=== PATIENT | female | born 1940 | race Two or more races ===

== ENCOUNTER 2019-07-17 08:58 | Emergency (ER) | payer MEDICARE, MEDICAID ==
[~2019-07-17] VITALS: Ht 147.3 cm; Wt 57.2 kg
[~2019-07-17 08:58] MED LIST: AMLO2.5T7 PO; ATOR20TA PO; ISOS30TA4 PO; LEVO75TA6 PO; MAGN400T28 PO; MELO1TAB56 PO; METO25TA62 PO; TEMA15CA91 PO
[2019-07-17 09:19] VITALS: BP 132/82
== END 2019-07-17 10:16 | disposition home or self-care (01) ==
LOC: EDBD 08:58 → EDUNIT# 08:58 → ER 08:58
DX: F41.9 Anxiety disorder, unspecified (principal); F32.9 Major depressive disorder, single episode, unspecified; I10 Essential (primary) hypertension; E78.5 Hyperlipidemia, unspecified; Z95.0 Presence of cardiac pacemaker; Z86.73 Personal history of transient ischemic attack (TIA), and cerebral infarction without residual deficits
CPT/HCPCS: 93005

== ENCOUNTER 2020-10-28 08:57 | Inpatient (IN) | payer MEDICARE, MEDICAID ==
[~2020-10-28] VITALS: Ht 154.9 cm; Wt 54.4 kg
[~2020-10-28 08:57] MED LIST changes: +AMLO-483 PO; -AMLO2.5T7 PO; -METO25TA62 PO; +METO25TA93 PO
[2020-10-28] MEDS ORDERED: HYDROcodone-ACET 5/325MG TAB PO ONE (10:45)
[2020-10-28 11:30] LABS: Basophils # (auto) 0 10 ^3/uL (0-0.2); Basophils % (auto) 0.2 % (0.0-2.0); Eosinophils # (auto) 0.1 10 ^3/uL (0-0.8); Eosinophils % (auto) 0.9 % (0.0-7.0); Hematocrit 40.2 % (36.0-46.0); Hemoglobin 13.9 g/dL (12.2-16.2); Lymphocytes # (auto) 1.1 10 ^3/uL (0.4-5.4); Lymphocytes % (auto) 16.6 % (10.0-50.0); Mean Corpuscular Hemoglobin 32.3 pg (28.0-32.0); Mean Corpuscular Hgb Conc. 34.5 g/dL (32.0-36.0); Mean Corpuscular Volume 93.5 fL (80.0-100.0); Monocytes # (auto) 0.3 10 ^3/uL (0-1.3); Monocytes % (auto) 4.1 % (0.0-12.0); Neutrophils # (auto) 5.2 10 ^3/uL (1.6-8.6); Neutrophils % (auto) 78.2 % (37.0-80.0); Nucleated Red Blood Cells % 0.1 %; Platelet Count (auto) 179 10^3/uL (140-450); Red Cell Distribution Width 13.9 % (11.8-14.3); White Blood Cell 6.7 10^3/uL (4.4-10.8)
[2020-10-28] MEDS ORDERED: NITROGLYCERIN 0.4 MG SL TAB SL PRN (11:30)
[2020-10-28 11:57] LABS: Albumin 3.9 g/dL (3.4-5.0); Potassium 3.5 mmol/L (3.5-5.1)
[2020-10-28 12:00] LABS: Bilirubin, Total 1.3 mg/dL (0.2-1.0); Total Protein 7.6 g/dL (6.4-8.2)
[2020-10-28] MEDS ORDERED: D5W/SOD CHL 0.45% 1,000 ML IV SCH (12:45)
[2020-10-28] MEDS ORDERED: ONDANSETRON HCL 4 MG/2 ML VIAL IV PRN (12:45)
[2020-10-28] MEDS ORDERED: amLODIPine BESYLATE 5 MG TAB PO ONE (13:15)
[2020-10-28] MEDS ORDERED: ISOSORBIDE MONONITRATE ER 60 MG TAB PO ONE (13:15)
[2020-10-28] MEDS ORDERED: LEVOTHYROXINE SODIUM 100 MCG/5 ML INJ IV ONE (13:15)
[2020-10-28] MEDS ORDERED: ENOXAPARIN SOD 40 MG/0.4 ML SYRINGE SC ONE (13:15)
[2020-10-28] MEDS ORDERED: PANTOPRAZOLE 40 MG TAB PO ONE (13:15)
[2020-10-28] MEDS ORDERED: CYCLOBENZAPRINE HCL 10 MG TAB PO ONE (15:15)
[2020-10-28] MEDS: HYDROcodone-ACET 5/325MG TAB PO PRN ×2 (16:08→20:42)
[2020-10-28 20:44] VITALS: BP 100/57
[2020-10-28] MEDS ORDERED: CYCLOBENZAPRINE HCL 10 MG TAB PO SCH (22:00)
[2020-10-29] MEDS ORDERED: LEVOTHYROXINE SODIUM 50 MCG TAB PO SCH (07:00)
[2020-10-29] MEDS ORDERED: LEVOTHYROXINE SODIUM 100 MCG/5 ML INJ IV SCH (10:00)
[2020-10-29] MEDS ORDERED: TEMAZEPAM 15 MG CAP PO SCH (10:00)
[2020-10-29] MEDS ORDERED: ENOXAPARIN SOD 40 MG/0.4 ML SYRINGE SC SCH (10:00)
[2020-10-29] MEDS ORDERED: PANTOPRAZOLE 40 MG TAB PO SCH (10:00)
[2020-10-29] MEDS ORDERED: ISOSORBIDE MONONITRATE ER 60 MG TAB PO SCH (10:00)
[2020-10-29] MEDS ORDERED: amLODIPine BESYLATE 5 MG TAB PO SCH (10:00)
== END 2020-10-28 23:12 | disposition left against medical advice (07) | DRG 914 ==
LOC: EDBD 08:57 → ER 08:57 → TELE 08:58
PROVIDERS: ADMIT Surgery; ATTEND Surgery
DX: S09.90XA Unspecified injury of head, initial encounter (principal); S32.010A Wedge compression fracture of first lumbar vertebra, initial encounter for closed fracture; R55 Syncope and collapse; E78.5 Hyperlipidemia, unspecified; E03.9 Hypothyroidism, unspecified; I10 Essential (primary) hypertension; M48.061 Spinal stenosis, lumbar region without neurogenic claudication; F41.9 Anxiety disorder, unspecified; F32.9 Major depressive disorder, single episode, unspecified; W18.39XA Other fall on same level, initial encounter; Z53.29 Procedure and treatment not carried out because of patient's decision for other reasons; Z60.2 Problems related to living alone; Z86.73 Personal history of transient ischemic attack (TIA), and cerebral infarction without residual deficits; Z88.5 Allergy status to narcotic agent; Y93.89 Activity, other specified; Y92.098 Other place in other non-institutional residence as the place of occurrence of the external cause; Y99.8 Other external cause status
CPT/HCPCS: 36415; 70450; 71045; 72125; 72131; 80053; 84443; 85025; 96360; G0378

== ENCOUNTER 2022-07-25 13:05 | Inpatient (IN) | payer MEDICARE, MEDICAID ==
[~2022-07-25] VITALS: Ht 152.4 cm; Wt 53.0 kg
[~2022-07-25 13:05] MED LIST changes: +ISOS1TAB28 PO; -ISOS30TA4 PO; +TEMA15CA2 PO; -TEMA15CA91 PO
[2022-07-25 14:55] LABS: Basophils # (auto) 0 10 ^3/uL (0-0.2); Basophils % (auto) 0.2 % (0.0-2.0); Eosinophils # (auto) 0.1 10 ^3/uL (0-0.8); Eosinophils % (auto) 1.2 % (0.0-7.0); Hematocrit 36.7 % (36.0-46.0); Hemoglobin 12.2 g/dL (12.2-16.2); Lymphocytes # (auto) 0.8 10 ^3/uL (0.4-5.4); Lymphocytes % (auto) 12.8 % (10.0-50.0); Mean Corpuscular Hemoglobin 30.3 pg (28.0-32.0); Mean Corpuscular Hgb Conc. 33.2 g/dL (32.0-36.0); Mean Corpuscular Volume 91.3 fL (80.0-100.0); Monocytes # (auto) 0.3 10 ^3/uL (0-1.3); Monocytes % (auto) 4.1 % (0.0-12.0); Neutrophils # (auto) 5.3 10 ^3/uL (1.6-8.6); Neutrophils % (auto) 81.7 % (37.0-80.0); Red Blood Cells 4.02 10^6/uL (4.0-5.20); Red Cell Distribution Width 14.5 % (11.8-14.3); White Blood Cell 6.5 10^3/uL (4.4-10.8)
[2022-07-25] MEDS ORDERED: SODIUM CHLORIDE 0.9% 500 ML IV ONE (15:15)
[2022-07-25 15:30] LABS: Albumin 3.6 g/dL (3.4-5.0); BUN/Creatinine Ratio 28.2; Calcium 9.1 mg/dL (8.5-10.1); Potassium 3.4 mmol/L (3.5-5.1)
[2022-07-25 15:32] LABS: Bilirubin, Total 1.2 mg/dL (0.2-1.0); Total Protein 6.8 g/dL (6.4-8.2)
[2022-07-25] MEDS ORDERED: NITROGLYCERIN 0.4 MG SL TAB SL PRN (17:15)
[2022-07-25] MEDS: SODIUM CHLORIDE 0.9% 1,000 ML IV SCH (17:21)
[2022-07-25] MEDS: ATORVASTATIN 20 MG TAB PO SCH (18:19)
[2022-07-25 18:49] LABS: Cholesterol 136 mg/dL (< 200)
[2022-07-25 18:52] LABS: HDL Cholesterol 48 mg/dL (40-59); LDL Cholesterol 82 mg/dL (< 100); Triglycerides 73 mg/dL (< 150)
[2022-07-25] MEDS ORDERED: POTASSIUM CHL 20 Meq TABLET PO ONE (19:15)
[2022-07-25 21:37] LABS: Urine Bacteria NONE SEEN /hpf (None Seen); Urine Blood Negative /uL (Negative); Urine Mucus FEW (None Seen); Urine WBC 1 /hpf (0 - 5)
[2022-07-25] MEDS ORDERED: POTA1TAB4 PO (22:51)
[2022-07-25] MEDS ORDERED: HYDR25TA5 PO (22:51)
[2022-07-25] MEDS ORDERED: CLOP75TA70 PO (22:51)
[2022-07-26 00:14] VITALS: BP 117/60
[2022-07-26 05:00] VITALS: BP 102/53
[2022-07-26 05:14] LABS: Albumin 3.4 g/dL (3.4-5.0); BUN/Creatinine Ratio 27.8; Basophils # (auto) 0 10 ^3/uL (0-0.2); Basophils % (auto) 0.4 % (0.0-2.0); Calcium 8.9 mg/dL (8.5-10.1); Eosinophils # (auto) 0.1 10 ^3/uL (0-0.8); Eosinophils % (auto) 3.4 % (0.0-7.0); Hematocrit 34.5 % (36.0-46.0); Hemoglobin 11.4 g/dL (12.2-16.2); Lymphocytes # (auto) 1.1 10 ^3/uL (0.4-5.4); Lymphocytes % (auto) 28.9 % (10.0-50.0); Mean Corpuscular Hemoglobin 30.4 pg (28.0-32.0); Mean Corpuscular Hgb Conc. 33.1 g/dL (32.0-36.0); Mean Corpuscular Volume 91.9 fL (80.0-100.0); Monocytes # (auto) 0.3 10 ^3/uL (0-1.3); Monocytes % (auto) 8.8 % (0.0-12.0); Neutrophils # (auto) 2.1 10 ^3/uL (1.6-8.6); Neutrophils % (auto) 58.5 % (37.0-80.0); Nucleated Red Blood Cells % 0.1 %; Potassium 3.9 mmol/L (3.5-5.1); Red Blood Cells 3.76 10^6/uL (4.0-5.20); White Blood Cell 3.7 10^3/uL (4.4-10.8)
[2022-07-26 05:16] LABS: Bilirubin, Total 1.5 mg/dL (0.2-1.0); Total Protein 6.2 g/dL (6.4-8.2)
[2022-07-26] MEDS: LEVOTHYROXINE SODIUM 25 MCG TAB PO SCH (07:11)
[2022-07-26] MEDS: ENOXAPARIN SOD 30 MG/0.3 ML SYRINGE SC SCH (08:57)
[2022-07-26] MEDS: SODIUM CHLORIDE 0.9% 1,000 ML IV SCH ×2 (08:58→18:45)
[2022-07-26 09:00] VITALS: BP 126/70
[2022-07-26] MEDS ORDERED: HYDROcodone-ACET 5/325MG TAB PO PRN (10:15)
[2022-07-26] MEDS ORDERED: LACTULOSE 20Gm/30ML SOLN PO PRN (10:15)
[2022-07-26 13:01] VITALS: BP 137/53
[2022-07-26 17:00] VITALS: BP 117/57
[2022-07-26] MEDS: ATORVASTATIN 20 MG TAB PO SCH (17:42)
[2022-07-26] MEDS: DOCUSATE SOD 100 MG CAP PO SCH (21:57)
[2022-07-26 22:00] VITALS: BP 141/60
[2022-07-26] MEDS ORDERED: TEMAZEPAM 15 MG CAP PO SCH (22:00)
[2022-07-27] MEDS: SODIUM CHLORIDE 0.9% 1,000 ML IV SCH (02:45)
[2022-07-27 04:29] VITALS: BP 102/53
[2022-07-27] MEDS: LEVOTHYROXINE SODIUM 25 MCG TAB PO SCH (07:39)
[2022-07-27] MEDS: ENOXAPARIN SOD 30 MG/0.3 ML SYRINGE SC SCH (08:20)
[2022-07-27] MEDS: DOCUSATE SOD 100 MG CAP PO SCH (08:20)
[2022-07-27 08:31] VITALS: BP 140/56
[2022-07-27 11:32] VITALS: BP 127/64
[2022-07-27 12:07] VITALS: BP 129/76
== END 2022-07-27 14:44 | disposition home or self-care (01) | DRG 641 ==
LOC: EDBD 13:05 → ER 13:05 → TELE 17:08 → TELE-EAST 22:31
PROVIDERS: ADMIT Registered Nurse; ATTEND Registered Nurse
DX: E86.0 Dehydration (principal); E78.5 Hyperlipidemia, unspecified; I11.0 Hypertensive heart disease with heart failure; I50.9 Heart failure, unspecified; F41.9 Anxiety disorder, unspecified; F32.A Depression, unspecified; I95.9 Hypotension, unspecified; Z20.822 Contact with and (suspected) exposure to COVID-19; Z86.73 Personal history of transient ischemic attack (TIA), and cerebral infarction without residual deficits; Z95.0 Presence of cardiac pacemaker; Z88.5 Allergy status to narcotic agent
CPT/HCPCS: 36415; 70450; 71045; 80053; 80061; 81001; 83735; 83880; 84484; 85025; 93005; 93306; 93886; 96360; 96361; 99291; G0378

== ENCOUNTER 2022-08-31 18:35 | Emergency (ER) | payer MEDICARE, MEDICAID ==
[~2022-08-31] VITALS: Ht 147.3 cm; Wt 63.0 kg
[~2022-08-31 18:35] MED LIST changes: +CLOP75TA70 PO; +HYDR25TA5 PO; +POTA1TAB4 PO
[2022-08-31] MEDS ORDERED: KETOROLAC TROMETH 60MG/2ML VIAL IM ONE (19:15)
[2022-08-31 19:36] VITALS: BP 121/58
== END 2022-08-31 20:20 | disposition home or self-care (01) ==
LOC: EDBD 18:35 → EDUNIT# 18:35 → ER 18:37
DX: M54.50 Low back pain, unspecified (principal); I10 Essential (primary) hypertension; E78.5 Hyperlipidemia, unspecified; Z86.73 Personal history of transient ischemic attack (TIA), and cerebral infarction without residual deficits; Z95.0 Presence of cardiac pacemaker; Z79.01 Long term (current) use of anticoagulants; Z79.899 Other long term (current) drug therapy; Z88.5 Allergy status to narcotic agent
CPT/HCPCS: 93005; 96372; 99285; J1885